=== PATIENT | male | born 1985 | race Caucasian/White ===

== ENCOUNTER 2022-05-20 14:28 | Inpatient (IN) ==
[2022-05-20] MEDS ORDERED: ONDANSETRON 2 MG OD TAB ONE (16:05)
[2022-05-20 16:14] LABS: Basophils # (auto) 0.05 K/uL (0-0.2); Basophils % (auto) 0.8 %; Eosinophils % (auto) 1.6 %; Hematocrit (blood only) 35.1 % (40.1-51.0); Hemoglobin 11.1 g/dl (14.0-18.0); Immature Granulocytes # (auto) 0.05 K/uL (0.00-0.02); Immature Granulocytes % (auto) 0.8 %; Lymphocytes # (auto) 1.46 K/uL (1.2-3.4); Lymphocytes % (auto) 23.1 %; Mean Corpuscular Hemoglobin 25.5 pg (25.0-34.0); Mean Corpuscular Hgb Conc 31.6 g/dL (32.0-36.0); Mean Corpuscular Volume 80.5 fL (80.0-100.0); Mean Platelet Volume 10.4 fL (9.4-12.4); Monocytes # (auto) 0.29 K/uL (0.24-0.82); Monocytes % (auto) 4.6 %; Neutrophils # (auto) 4.38 K/uL (1.4-6.5); Neutrophils % (auto) 69.1 %; Platelet Count 81 K/uL (130-400); Platelet Estimate Decreased (Normal); RDW Coefficient of Variation 18.3 % (11.5-14.5); RDW Standard Deviation 51.3 fL (36.4-46.3); Red Blood Count 4.36 M/uL (4.63-6.08); White Blood Count 6.33 K/ul (4.8-10.8)
[2022-05-20 16:16] LABS: Acetaminophen < 3 ug/ml (10-30); Alanine Aminotransferase 61 U/L (7-52); Albumin Level 3.7 gm/dl (3.4-5.0); Alkaline Phosphatase 102 U/L (34-104); Anion Gap 13 (3-11); Aspartate Aminotransferase 162 U/L (13-39); BUN Creatinine Ratio 8.7 (10-20); Bilirubin,Total 2.5 mg/dl (0.2-1.0); Blood Urea Nitrogen 6 mg/dl (6-23); Carbon Dioxide 23 mmol/L (21-32); Chloride 99 mmol/L (98-107); Est GFR (African American) 141.6 ml/min; Est GFR (Non-African American) 122.1 ml/min; Globulin 3.7 gm/dl (2.5-4.0); Glucose 181 mg/dl (70-99(Fasting)); Potassium 2.6 mmol/L (3.5-5.1); Salicylate < 3.0 mg/dl (3.0-30); Sodium 135 mmol/L (136-145); Total Protein 7.4 gm/dl (6.0-8.3)
--- NOTE | 2022-05-20 16:33 | Electrocardiogram Report ---
Test Reason : Blood Pressure : / mmHG Vent. Rate : 115 BPM Atrial Rate : 115 BPM P-R Int : 144 ms QRS Dur : 106 ms QT Int : 350 ms P-R-T Axes : 047 -11 067 degrees QTc Int : 484 ms Sinus tachycardia Minimal voltage criteria for LVH, may be normal variant Poor R wave progression, consider anterior NC vs. lead placement vs. LVH Abnormal ECG No previous ECGs available Confirmed by Hussein De La O ([id number]) on 05/20/2022 4:32:52 PM Referred By: Confirmed By:Hussein De La O
[2022-05-20] MEDS ORDERED: LORazepam 2 MG/1 ML VIAL IV STA ×3 (17:01→19:11)
[2022-05-20] MEDS ORDERED: MULTI-VITAMIN INFUSION 10 ML, THIAMINE HCL 100 MG, FOLIC ACID 1 MG in SODIUM CHLORIDE 0... IV ONE (17:01)
--- NOTE | 2022-05-20 17:09 | Emergency Department Note ---
History of Present Illness General Chief complaint: Swelling/Edema to Extremity Stated complaint: SWELLING, EDEMA, FATIGUE Time Seen by Provider: 05/20/22 16:46 Source: patient and family (Father is at the bedside) Mode of arrival: ambulatory Limitations: no limitations History of Present Illness Maximum Pain Intensity: 6 Patient comes in complaining of alcohol withdrawal and weakness. He feels he is going through alcohol withdrawal. He typically drinks 2 to 12 packs a day and stopped over the weekend he had some fireball this morning. He started to feel shaky. He is withdrawn in the past has been appear made in [facility]. He denies that he has had any suicidal intent or any overdose of medication such as aspirin or Tylenol. Does not use any other drugs denies any recent fall or trauma. He has an old hernia in his abdomen which is unchanged no acute abdominal pain he is vomited a couple times without blood. Diarrhea but no blood or melena. Home Medications Medication Instructions Recorded Confirmed Type albuterol sulfate 90 mcg/actuation 1 inh inhalation UD PRN asthma 09/20/21 05/20/22 History aerosol inhaler cetirizine 10 mg tablet (Zyrtec) 10 mg PO DAILY 09/20/21 05/20/22 History esomeprazole magnesium 40 mg 40 mg PO QAM 09/20/21 05/20/22 History capsule,delayed release (Nexium) lactulose 10 gram/15 mL oral 30 ml PO BID 09/20/21 05/20/22 History solution lorazepam 1 mg tablet 1 mg PO UD PRN Sleep 09/20/21 05/20/22 History melatonin 10 mg capsule 10 mg PO HS PRN Sleep 09/20/21 05/20/22 History Allergies Allergy/AdvReac Type Severity Reaction Status Date / Time No Known Allergies Allergy Verified 09/27/21 09:05 Past Med/Surg History Medical History Abnormal laboratory test pt not sure details - observed results on own ; been abnormal for last couple blood tests ...no f/u appointment scheduled for or recommended for Asthma no use rescule inhaler for long time Bilateral swelling of feet HX DIURETIC AUG 2021 - NO CURRENT USE - SWELLING RESOLVED GERD (gastroesophageal reflux disease) History of diverticulitis History of tachycardia remote hx, medication for and since d/c'd - resolved and no further issues since Seasonal allergies Sleep apnea can't tolerate device Surgical History History of cholecystectomy History of endoscopy Family History Other Family history of diabetes mellitus in father Social History Smoking Status: Never smoker Hx Alcohol Use: No ("NOT CURRENTLY") Preferred Language: French Communication Ability: Effective 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 Beliefs That Will Affect Care: None Current Living Situation: Significant Other Feels Safe at Home: Yes Assistive Devices: None Review of Systems A total of 10 systems reviewed and were otherwise negative Physical Exam Vital Signs Vital Signs - 24 hr 05/20/22 14:31 05/20/22 17:03 Temperature 36.9 C Temperature Source Temporal Artery Scan Pulse Rate 127 H Pulse Rate [Finger] 112 H Respiratory Rate 18 18 Respiratory Effort / Characteristics Non-Labored Non-Labored Respiratory Depth Normal Normal Blood Pressure 140/70 Blood Pressure [Right Arm] 139/79 Blood Pressure Mean 93 Blood Pressure Mean [Right Arm] 99 Pulse Oximetry 94 97 Oxygen Delivery Method Room Air Room Air Sepsis Recent Fever Within 48 Hours No Sepsis New/Unexplained Change in Mental Status No Sepsis Action Taken by Nursing No Action Required General: Well developed well nourished obese middle-aged male who appears in no acute distress, breathing comfortably on room air. Normal speech HEENT: Normal cephalic atraumatic. Pupils are equal round and reactive to light. Extraocular movements are intact. Oropharynx is pink with moist mucous membranes. No swelling of the mouth lips or tongue. Neck: Supple with a midline trachea. No meningeal signs or stiffness, no JVD or bruits. No Stridor. Chest: Clear to auscultation bilaterally. No wheezes or rhonchi. No increased work of breathing. Heart: Regular rate and rhythm without murmurs or gallops. Abdomen: Soft nontender, nondistended without rebound guarding or rigidity. Hernia on the left side of the abdomen is not tender. The patient says this is unchanged. Extremities: No cyanosis clubbing. Some bilateral lower extremity edema and some generalized anasarca. No calf tenderness or assymetry Spine/Back. Non tender to palpation. No CVA tenderness Skin: Good turgor without rashes. Neurologic exam: Cranial nerves two through 12 are intact. Motor and sensation are intact and symmetrical throughout. Overtly shaky. Course Administered Medications Acetaminophen (Acetaminophen 325 Mg Tab) 650 mg PO Q4H PRN PRN Reason: Pain or Fever Stop: 06/19/22 19:57 Last Admin: 05/20/22 20:54 Dose: 650 mg Documented By: VENKATESH Enoxaparin Sodium (Enoxaparin Inj 40 Mg/0.4 Ml Syr) 40 mg SQ Q12H WILLIAM Stop: 06/19/22 20:59 Last Admin: 05/20/22 20:27 Dose: 40 mg Documented By: VENKATESH Folic Acid (Folic Acid 1 Mg Tab) 1 mg PO QAM WILLIAM Stop: 06/19/22 20:14 Last Admin: 05/20/22 20:26 Dose: 1 mg Documented By: VENKATESH Lactulose (Lactulose Syrup 30 Gm/45 Ml Udp) 30 gm PO BID WILLIAM Stop: 06/19/22 20:59 Last Admin: 05/20/22 21:36 Dose: 30 gm Documented By: VENKATESH Lorazepam (Lorazepam 1 Mg Tab) 1 mg PO UD PRN; Protocol PRN Reason: EtOH Withdrawal AWSS Score 6,7 Stop: 06/19/22 19:57 Last Admin: 05/20/22 22:24 Dose: 1 mg Documented By: Admin: 05/20/22 20:54 Dose: 1 mg Documented By: VENKATESH Melatonin (Melatonin 3 Mg Tab) 9 mg PO HS PRN PRN Reason: Sleep Last Admin: 05/20/22 22:24 Dose: 9 mg Documented By: VENKATESH Ondansetron HCl (Ondansetron Inj 2 Mg/Ml 2 Ml Vial) 4 mg IV Q6H PRN PRN Reason: Nausea Stop: 06/19/22 19:57 Last Admin: 05/20/22 20:54 Dose: 4 mg Documented By: VENKATESH Pantoprazole Sodium (Pantoprazole 40 Mg Tab) 40 mg PO QAM [facility] Stop: 06/19/22 20:14 Last Admin: 05/20/22 20:27 Dose: 40 mg Documented By: VENKATESH Thiamine HCl (Thiamine Hcl 100 Mg Tab) [facility] [place] Stop: 06/19/22 20:14 Last Admin: 05/20/22 20:26 Dose: 100 mg Documented By: VENKATESH Discontinued Medications Multivitamins 10 ml/ Thiamine HCl 100 mg/ Folic Acid 1 mg/Sodium Chloride 1,011.2 mls @ 1,011.2 mls/hr IV .Q1H ONE Stop: 05/20/22 18:00 Last Infusion: 05/20/22 19:08 Dose: 0 mls/hr Documented By: Admin: 05/20/22 17:36 Dose: 1,011.2 mls/hr Documented By: JAYESH Potassium Chloride (K Dallin / Wtr) 10 meq in 100 mls @ 100 mls/hr IV Q1H WILLIAM; Protocol Stop: 05/20/22 19:14 Last Infusion: 05/20/22 20:00 Dose: 0 mls/hr Documented By: Admin: 05/20/22 18:31 Dose: 100 mls/hr Documented By: Infusion: 05/20/22 18:30 Dose: 100 mls/hr Documented By: Admin: 05/20/22 17:30 Dose: 100 mls/hr Documented By: JAYESH Magnesium Sulfate/Dextrose (Magnesium Sulfate / D5w) 1 gm in 100 mls @ 100 mls/hr IV NOW STA Stop: 05/20/22 19:09 Last Infusion: 05/20/22 19:32 Dose: 0 mls/hr Documented By: Admin: 05/20/22 18:31 Dose: 100 mls/hr Documented By: JAYESH Potassium Chloride (K Dallin / Wtr) 10 meq in 100 mls @ 100 mls/hr IV Q1H WILLIAM Stop: 05/20/22 21:57 Last Admin: 05/20/22 21:01 Dose: 75 mls/hr Documented By: Infusion: 05/20/22 21:01 Dose: 100 mls/hr Documented By: Admin: 05/20/22 20:03 Dose: 100 mls/hr Documented By: VENKATESH Lorazepam (Lorazepam 2 Mg/1 Ml Vial) 1 mg IV NOW STA; Protocol Stop: 05/20/22 17:02 Last Admin: 05/20/22 17:30 Dose: 1 mg Documented By: JAYESH Lorazepam (Lorazepam 2 Mg/1 Ml Vial) 1 mg IV NOW STA; Protocol Stop: 05/20/22 18:10 Last Admin: 05/20/22 19:24 Dose: Not Given Documented By: GRECIA Lorazepam (Lorazepam 2 Mg/1 Ml Vial) 1 mg IV NOW STA; Protocol Stop: 05/20/22 19:12 Last Admin: 05/20/22 19:24 Dose: 1 mg Documented By: GRECIA Ondansetron HCl (Ondansetron 2 Mg Od Tab) Confirm Administered Dose 2 mg .ROUTE .STK-MED ONE Stop: 05/20/22 16:06 Last Admin: 05/20/22 18:52 Dose: Not Given Documented By: GRECIA Ondansetron HCl (Ondansetron 4 Mg Od Tab) 4 mg PO NOW STA Stop: 05/20/22 19:14 Last Admin: 05/20/22 19:24 Dose: 4 mg Documented By: GRECIA Potassium Chloride (Potassium Chloride Crtab 20 Meq Tabcr) 40 meq PO NOW STA Stop: 05/20/22 19:59 Last Admin: 05/20/22 20:27 Dose: 40 meq Documented By: VENKATESH Medical Decision Making Differential Diagnosis Fall, electrolyte or metabolic abnormality, infection, cardiac disease, liver disease, toxicologic, metabolic Medical Records Attestation: I reviewed the patient's medical records. Home Medications Current Medication List: was personally reviewed by me Laboratory Data Result diagrams: 05/20/22 15:28 05/20/22 15:28 Lab Results 05/20/22 05/20/22 05/20/22 Range/Units 15:25 15:28 15:28 WBC 6.33 (4.8-10.8) K/ul RBC 4.36 L (4.63-6.08) M/uL Hgb 11.1 L (14.0-18.0) g/dl Hct 35.1 L (40.1-51.0) % MCV 80.5 (80.0-100.0) fL MCH 25.5 (25.0-34.0) pg MCHC 31.6 L (32.0-36.0) g/dL RDW Std Deviation 51.3 H (36.4-46.3) fL RDW Coeff of Enrrique 18.3 H (11.5-14.5) % Plt Count 81 L (130-400) K/uL MPV 10.4 (9.4-12.4) fL Immature Gran % (Auto) 0.8 % Neut % (Auto) 69.1 % Lymph % (Auto) 23.1 % Rowan % (Auto) 4.6 % Eos % (Auto) 1.6 % Baso % (Auto) 0.8 % Neut # (Auto) 4.38 (1.4-6.5) K/uL Lymph # (Auto) 1.46 (1.2-3.4) K/uL Rowan # (Auto) 0.29 (0.24-0.82) K/uL Eos # (Auto) 0.10 (0-0.50) K/uL Baso # (Auto) 0.05 (0-0.2) K/uL Immature Gran # (Auto) 0.05 H (0.00-0.02) K/uL Platelet Estimate Decreased L (Normal) PT 13.5 H (9.0-12.0) Seconds INR 1.3 H (0.9-1.1) APTT 28.8 (21.0-31.0) Seconds PTT Ratio 1.0 Sodium 135 L (136-145) mmol/L Potassium 2.6 L (3.5-5.1) mmol/L Chloride 99 (98-107) mmol/L Carbon Dioxide 23 (21-32) mmol/L Anion Gap 13 H (3-11) BUN 6 (6-23) mg/dl Creatinine 0.69 (0.6-1.4) mg/dl Est Cr Clr Drug Dosing Not Reportable Est GFR ( Amer) 141.6 ml/min Est GFR (Non-Af Amer) 122.1 ml/min BUN/Creatinine Ratio 8.7 L (10-20) Glucose 181 H (70-99(Fasting)) mg/dl Calcium 8.0 L (8.5-10.1) mg/dl Magnesium (1.7-2.4) mg/dl Total Bilirubin 2.5 H (0.2-1.0) mg/dl AST 162 H (13-39) U/L ALT 61 H (7-52) U/L Alkaline Phosphatase 102 (34-104) U/L Troponin I High Sens (0-20) pg/ml B-Natriuretic Peptide (0-100) pg/ml Total Protein 7.4 (6.0-8.3) gm/dl Albumin 3.7 (3.4-5.0) gm/dl Globulin 3.7 (2.5-4.0) gm/dl Albumin/Globulin Ratio 1.0 (0.9-2) TSH (0.300-4.500) uIu/ml Salicylates (3.0-30) mg/dl Acetaminophen (10-30) ug/ml Ethyl Alcohol mg/dL (<10.0) mg/dl SARS-CoV-2, RNA, NAAT (NEGATIVE) 05/20/22 05/20/22 05/20/22 Range/Units 15:28 15:28 15:28 WBC (4.8-10.8) K/ul RBC (4.63-6.08) M/uL Hgb (14.0-18.0) g/dl Hct (40.1-51.0) % MCV (80.0-100.0) fL MCH (25.0-34.0) pg MCHC (32.0-36.0) g/dL RDW Std Deviation (36.4-46.3) fL RDW Coeff of Enrrique (11.5-14.5) % Plt Count (130-400) K/uL MPV (9.4-12.4) fL Immature Gran % (Auto) % Neut % (Auto) % Lymph % (Auto) % Rowan % (Auto) % Eos % (Auto) % Baso % (Auto) % Neut # (Auto) (1.4-6.5) K/uL Lymph # (Auto) (1.2-3.4) K/uL Rowan # (Auto) (0.24-0.82) K/uL Eos # (Auto) (0-0.50) K/uL Baso # (Auto) (0-0.2) K/uL Immature Gran # (Auto) (0.00-0.02) K/uL Platelet Estimate (Normal) PT (9.0-12.0) Seconds INR (0.9-1.1) APTT (21.0-31.0) Seconds PTT Ratio Sodium (136-145) mmol/L Potassium (3.5-5.1) mmol/L Chloride (98-107) mmol/L Carbon Dioxide (21-32) mmol/L Anion Gap (3-11) BUN (6-23) mg/dl Creatinine (0.6-1.4) mg/dl Est Cr Clr Drug Dosing Est GFR ( Amer) ml/min Est GFR (Non-Af Amer) ml/min BUN/Creatinine Ratio (10-20) Glucose (70-99(Fasting)) mg/dl Calcium (8.5-10.1) mg/dl Magnesium (1.7-2.4) mg/dl Total Bilirubin (0.2-1.0) mg/dl AST (13-39) U/L ALT (7-52) U/L Alkaline Phosphatase (34-104) U/L Troponin I High Sens (0-20) pg/ml B-Natriuretic Peptide (0-100) pg/ml Total Protein (6.0-8.3) gm/dl Albumin (3.4-5.0) gm/dl Globulin (2.5-4.0) gm/dl Albumin/Globulin Ratio (0.9-2) TSH 2.276 (0.300-4.500) uIu/ml Salicylates < 3.0 L (3.0-30) mg/dl Acetaminophen < 3 L (10-30) ug/ml Ethyl Alcohol mg/dL 437.0 H (<10.0) mg/dl SARS-CoV-2, RNA, NAAT (NEGATIVE) 05/20/22 05/20/22 05/20/22 Range/Units 15:28 15:28 15:28 WBC (4.8-10.8) K/ul RBC (4.63-6.08) M/uL Hgb (14.0-18.0) g/dl Hct (40.1-51.0) % MCV (80.0-100.0) fL MCH (25.0-34.0) pg MCHC (32.0-36.0) g/dL RDW Std Deviation (36.4-46.3) fL RDW Coeff of Enrrique (11.5-14.5) % Plt Count (130-400) K/uL MPV (9.4-12.4) fL Immature Gran % (Auto) % Neut % (Auto) % Lymph % (Auto) % Rowan % (Auto) % Eos % (Auto) % Baso % (Auto) % Neut # (Auto) (1.4-6.5) K/uL Lymph # (Auto) (1.2-3.4) K/uL Rowan # (Auto) (0.24-0.82) K/uL Eos # (Auto) (0-0.50) K/uL Baso # (Auto) (0-0.2) K/uL Immature Gran # (Auto) (0.00-0.02) K/uL Platelet Estimate (Normal) PT (9.0-12.0) Seconds INR (0.9-1.1) APTT (21.0-31.0) Seconds PTT Ratio Sodium (136-145) mmol/L Potassium (3.5-5.1) mmol/L Chloride (98-107) mmol/L Carbon Dioxide (21-32) mmol/L Anion Gap (3-11) BUN (6-23) mg/dl Creatinine (0.6-1.4) mg/dl Est Cr Clr Drug Dosing Est GFR ( Amer) ml/min Est GFR (Non-Af Amer) ml/min BUN/Creatinine Ratio (10-20) Glucose (70-99(Fasting)) mg/dl Calcium (8.5-10.1) mg/dl Magnesium 1.7 (1.7-2.4) mg/dl Total Bilirubin (0.2-1.0) mg/dl AST (13-39) U/L ALT (7-52) U/L Alkaline Phosphatase (34-104) U/L Troponin I High Sens 133.4 H* (0-20) pg/ml B-Natriuretic Peptide 51 (0-100) pg/ml Total Protein (6.0-8.3) gm/dl Albumin (3.4-5.0) gm/dl Globulin (2.5-4.0) gm/dl Albumin/Globulin Ratio (0.9-2) TSH (0.300-4.500) uIu/ml Salicylates (3.0-30) mg/dl Acetaminophen (10-30) ug/ml Ethyl Alcohol mg/dL (<10.0) mg/dl SARS-CoV-2, RNA, NAAT (NEGATIVE) 05/20/22 Range/Units 17:12 WBC (4.8-10.8) K/ul RBC (4.63-6.08) M/uL Hgb (14.0-18.0) g/dl Hct (40.1-51.0) % MCV (80.0-100.0) fL MCH (25.0-34.0) pg MCHC (32.0-36.0) g/dL RDW Std Deviation (36.4-46.3) fL RDW Coeff of Enrrique (11.5-14.5) % Plt Count (130-400) K/uL MPV (9.4-12.4) fL Immature Gran % (Auto) % Neut % (Auto) % Lymph % (Auto) % Rowan % (Auto) % Eos % (Auto) % Baso % (Auto) % Neut # (Auto) (1.4-6.5) K/uL Lymph # (Auto) (1.2-3.4) K/uL Rowan # (Auto) (0.24-0.82) K/uL Eos # (Auto) (0-0.50) K/uL Baso # (Auto) (0-0.2) K/uL Immature Gran # (Auto) (0.00-0.02) K/uL Platelet Estimate (Normal) PT (9.0-12.0) Seconds INR (0.9-1.1) APTT (21.0-31.0) Seconds PTT Ratio Sodium (136-145) mmol/L Potassium (3.5-5.1) mmol/L Chloride (98-107) mmol/L Carbon Dioxide (21-32) mmol/L Anion Gap (3-11) BUN (6-23) mg/dl Creatinine (0.6-1.4) mg/dl Est Cr Clr Drug Dosing Est GFR ( Amer) ml/min Est GFR (Non-Af Amer) ml/min BUN/Creatinine Ratio (10-20) Glucose (70-99(Fasting)) mg/dl Calcium (8.5-10.1) mg/dl Magnesium (1.7-2.4) mg/dl Total Bilirubin (0.2-1.0) mg/dl AST (13-39) U/L ALT (7-52) U/L Alkaline Phosphatase (34-104) U/L Troponin I High Sens (0-20) pg/ml B-Natriuretic Peptide (0-100) pg/ml Total Protein (6.0-8.3) gm/dl Albumin (3.4-5.0) gm/dl Globulin (2.5-4.0) gm/dl Albumin/Globulin Ratio (0.9-2) TSH (0.300-4.500) uIu/ml Salicylates (3.0-30) mg/dl Acetaminophen (10-30) ug/ml Ethyl Alcohol mg/dL (<10.0) mg/dl SARS-CoV-2, RNA, NAAT NEGATIVE (NEGATIVE) Imaging Data Attestation: I personally reviewed and interpreted this imaging study as follows: My Impression: Chest x-raycardiomegaly but no definite pneumonia or pneumothorax or CHF Radiologist's Impression: Chest X-Ray 05/20/22 17:00 XR chest 1V portable CLINICAL HISTORY: fluids retnetion TECHNIQUE: Single frontal radiograph of the chest was obtained. Comparison: None available at the time of this dictation. FINDINGS: No lines and tubes are seen. Cardiomegaly is noted. Prominence and cephalization of the vasculature is seen. No evidence of pleural effusion or pneumothorax. IMPRESSION: Cardiomegaly with mild pulmonary edema. ACT 112: Negative or not required by law. Electronically signed by: Donte Gill M.D. 05/20/2022 6:12 PM ECG Data Attestation: I personally reviewed and interpreted this ECG as follows: Indication: + weakness Rate (beats per minute): 115 Rhythm: + sinus tachycardia ECG Intervals/blocks: + Normal QRS, + Normal QT and + Normal NC ECG Wilmont: + Normal ECG ST segments: + Normal ST segments ECG Findings: + Poor R wave progression; no PACs or no PVCs Comparison ECG Date: no prior available MDM Narrative This patient comes in as described above. 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 He has been drinking. he feels he is withdrawing. he does not appear to be significantly shaky. he is mildly tachycardic he did give Ativan 1 mg IV as his blood alcohol is over 400. He is mentating well however. His potassium low 2.6 I did order 2K riders. Magnesium is low. He was given IV magnesium as well. He did receive additional IV Ativan 1 mg. EKG does not show any definite ischemic changes however troponin was elevated at 133 1 but can talk to him he has had no chest pain or shortness of breath. I do think he needs to be admitted and observed for his electrolyte abnormalities his alcohol use and withdrawal as well as his elevated troponin I have consulted the hospitalist raquel negron to see him in the ER for these measures. Continous Cardiac monitoring: Order was placed in the EMR for continuous cardiac monitoring and upon my interpretation the patient was noted to be in sin us tachycardia with a rate of 115 Impression & Plan Alcohol withdrawal, Alcohol use disorder, Hypomagnesemia, Hypokalemia, Elevated troponin Discharge Plan Visit Data Chief Complaint: Swelling/Edema to Extremity Stated Complaint: SWELLING, EDEMA, FATIGUE ED Provider: Randall Grover Discharge Problem: Alcohol withdrawal, Alcohol use disorder, Hypomagnesemia, Hypokalemia, Elevated troponin Patient Disposition: Admitted As Inpatient Discharge Instructions Interventions: ED Discharge Assessment Last Done: 05/20/22 19:39
[2022-05-20] MEDS: POTASSIUM CHLORIDE / WTR 10 MEQ/100 ML PLCT IV SCH ×4 (17:30→21:01)
[2022-05-20 17:37] LABS: INR 1.3 (0.9-1.1); Partial Thromboplastin Time 28.8 Seconds (21.0-31.0); Prothrombin Time 13.5 Seconds (9.0-12.0)
[2022-05-20] MEDS ORDERED: MAGNESIUM SULFATE / D5W 1 GM/100 ML BAG IV STA (18:10)
--- NOTE | 2022-05-20 18:13 | XRay Report ---
XR chest 1V portable CLINICAL HISTORY: fluids retnetion TECHNIQUE: Single frontal radiograph of the chest was obtained. Comparison: None available at the time of this dictation. FINDINGS: No lines and tubes are seen. Cardiomegaly is noted. Prominence and cephalization of the vasculature i s seen. No evidence of pleural effusion or pneumothorax. IMPRESSION: Cardiomegaly with mild pulmonary edema. ACT 112: Negative or not required by law. Electronically signed by: Donte Gill M.D. 05/20/2022 6:12 PM
[2022-05-20] MEDS ORDERED: ONDANSETRON 4 MG OD TAB PO STA (19:13)
--- NOTE | 2022-05-20 19:25 | History & Physical Report ---
Date of Service May 20, 2022 Assessment & Plan (1) Alcohol withdrawal: Plan: 36 yo male PMHx alcohol use disorder, cirrhosis, asthma, restless leg syndrome, GERD presents to clinic for alcohol withdrawal. Alcohol withdrawal Alcohol use disorder -presented with mild tremors, last drink yesterday per patient -ethyl alcohol 437 -active AWSS protocol with spot doses of ativan for anxiety -banana bag x1 in ED -daily thiamine, folate -zofran, tylenol prn Elevated troponin -suspect due to demand ischemia secondary to alcohol use -trop 133, trend q6h -EKG: sinus tachycardia -CXR: cardiomegaly with pulm edema -echo ordered Hypokalemia -K 2.6 in ED -replenished, recheck am Cirrhosis, chronic -likely due to chronic alcohol use -PT, INR, LFTs elevated -cont. home lactulose -trend cmp GERD -cont. home nexium Asthma -cont home albuterol DVT ppx: lovenox FEN/GI: regular Code Status: full Dispo: med tele (2) Cirrhosis: (3) Asthma: (4) GERD (gastroesophageal reflux disease): (5) Alcohol use disorder: (6) Thrombocytopenia: (7) Anemia: History of Present Illness Chief Complaint: alcohol withdrawal Primary Care Provider: NO PCP 36 yo male PMHx alcohol use disorder, cirrhosis, asthma, restless leg syndrome, GERD presents to clinic for alcohol withdrawal. He drank 24 white claws a day for the last week and then had a shot of fireball last night. Denies alcohol use today. Starting to feel generalized tremors, difficulty sleeping, and chills. Denies fevers, SOB, chest pain, hallucinations. Long standing history of alcohol use disorder, states he was in the [facility] program ~2 months ago which was going well until it fell apart. He is interested in quitting alcohol once again. Denies any heart abnormalities. Was given banana bag and spot doses of Ativan in the ED. Allergies Allergy/AdvReac Type Severity Reaction Status Date / Time No Known Allergies Allergy Verified 09/27/21 09:05 Home Medications Medication Instructions Recorded Confirmed Type albuterol sulfate 90 mcg/actuation 1 inh inhalation UD PRN asthma 09/20/21 05/20/22 History aerosol inhaler cetirizine 10 mg tablet (Zyrtec) 10 mg PO DAILY 09/20/21 05/20/22 History esomeprazole magnesium 40 mg 40 mg PO QAM 09/20/21 05/20/22 History capsule,delayed release (Nexium) lactulose 10 gram/15 mL oral 30 ml PO BID 09/20/21 05/20/22 History solution lorazepam 1 mg tablet 1 mg PO UD PRN Sleep 09/20/21 05/20/22 History melatonin 10 mg capsule 10 mg PO HS PRN Sleep 09/20/21 05/20/22 History Past Med/Surg History Medical History Abnormal laboratory test pt not sure details - observed results on own ; been abnormal for last couple blood tests ...no f/u appointment scheduled for or recommended for Asthma no use rescule inhaler for long time Bilateral swelling of feet HX DIURETIC AUG 2021 - NO CURRENT USE - SWELLING RESOLVED GERD (gastroesophageal reflux disease) History of diverticulitis History of tachycardia remote hx, medication for and since d/c'd - resolved and no further issues since Seasonal allergies Sleep apnea can't tolerate device Surgical History History of cholecystectomy History of endoscopy Family History Other Family history of diabetes mellitus in father Social History Smoking Status: Never smoker Hx Alcohol Use: No ("NOT CURRENTLY") Preferred Language: Venezuelan Communication Ability: Effective [employer] Mixer Required: No Beliefs That Will Affect Care: None Current Living Situation: Significant Other Feels Safe at Home: Yes Assistive Devices: None Review of Systems Review of Systems: All systems reviewed & are unremarkable except as noted in HPI & below Physical Exam Physical Exam: Constitutional: in no acute distress, pleasant, intact memory. Vitals as above. Morbidly obese. HEENT: No scleral injection or discharge. Moist mucous membranes. Clear oropharynx without exudate. Neck: Supple without lymphadenopathy or thyromegaly. Trachea midline. Lungs: Clear to auscultation bilaterally with good effort. Cardiac: Regular rate and rhythm. No murmurs.2+ bilateral pitting edema. 2+ peripheral pulses. Abdomen: Bowel sounds present. Soft, nontender. +large hiatal hernia.No guarding or rebound tenderness. No hepatosplenomegaly. MSK: No cyanosis or clubbing. Extremities motor strength 5/5. Skin: warm, dry. Neurologic: No focal deficits. PERRL. +generalized tremors. No clonus. Results & Data Results & Data ([facility]) Vital Signs (Past 12 Hours) Vital Signs Temp Pulse Pulse Resp BP BP Pulse Ox 05/20/22 17:03 112 H 18 139/79 97 05/20/22 14:31 36.9 C 127 H 18 140/70 94 O2 Del Method 05/20/22 17:03 Room Air 05/20/22 14:31 Room Air Laboratory Results Laboratory Results WBC 6.33 K/ul (4.8-10.8) 05/20/22 15: RBC 4.36 M/uL (4.63-6.08) L 05/20/22 15: Hgb 11.1 g/dl (14.0-18.0) L 05/20/22 15: Hct 35.1 % (40.1-51.0) L 05/20/22 15:28 MCV 80.5 fL (80.0-100.0) 05/20/22 15: MCH 25.5 pg (25.0-34.0) 05/20/22 15: MCHC 31.6 g/dL (32.0-36.0) L 05/20/22 15:28 RDW Std Deviation 51.3 fL (36.4-46.3) H 05/20/22 15: RDW Coeff of Enrrique 18.3 % (11.5-14.5) H 05/20/22 15:28 Plt Count 81 K/uL (130-400) L 05/20/22 15: MPV 10.4 fL (9.4-12.4) 05/20/22 15: Immature Gran % (Auto) 0.8 % 05/20/22 15: Neut % (Auto) 69.1 % 05/20/22 15: Lymph % (Auto) 23.1 % 05/20/22 15:28 Parker % (Auto) 4.6 % 05/20/22 15: Eos % (Auto) 1.6 % 05/20/22 15: Baso % (Auto) 0.8 % 05/20/22 15: Neut # (Auto) 4.38 K/uL (1.4-6.5) 05/20/22: Lymph # (Auto) 1.46 K/uL (1.2-3.4) 05/20/22 15: Parker # (Auto) 0.29 K/uL (0.24-0.82) 05/20/22: Eos # (Auto) 0.10 K/uL (0-0.50) 05/20/22 15: Baso # (Auto) 0.05 K/uL (0-0.2) 05/20/22: Immature Gran # (Auto) 0.05 K/uL (0.00-0.02) H 05/20/22 15: Platelet Estimate Decreased (Normal) L 05/20/22 15: PT 13.5 Seconds (9.0-12.0) H 05/20/22 15: INR 1.3 (0.9-1.1) H 05/20/22 15: APTT 28.8 Seconds (21.0-31.0) 05/20/22: PTT Ratio 1.0 05/20/22 15: Sodium 135 mmol/L (136-145) L 05/20/22: Potassium 2.6 mmol/L (3.5-5.1) L 05/20/22: Chloride 99 mmol/L (98-107) 05/20/22: Carbon Dioxide 23 mmol/L (21-32) 05/20/22: Anion Gap 13 (3-11) H 05/20/22 15: BUN 6 mg/dl (6-23) 05/20/22: Creatinine 0.69 mg/dl (0.6-1.4) 05/20/22: Est Cr Clr Drug Dosing Not Reportable 05/20/22: Est GFR ( Amer) 141.6 ml/min 05/20/22 15: Est GFR (Non-Af Amer) 122.1 ml/min 05/20/22: BUN/Creatinine Ratio 8.7 (10-20) L 05/20/22 15:28 Glucose 181 mg/dl (70-99(Fasting)) H 05/20/22 15:28 Calcium 8.0 mg/dl (8.5-10.1) L 05/20/22 15:28 Magnesium 1.7 mg/dl (1.7-2.4) 05/20/22 15:28 Total Bilirubin 2.5 mg/dl (0.2-1.0) H 05/20/22 15:28 AST 162 U/L (13-39) H 05/20/22 15:28 ALT 61 U/L (7-52) H 05/20/22 15:28 Alkaline Phosphatase 102 U/L (34-104) 05/20/22 15:28 Troponin I High Sens 133.4 pg/ml (0-20) H* 05/20/22 15:28 B-Natriuretic Peptide 51 pg/ml (0-100) 05/20/22 15:28 Total Protein 7.4 gm/dl (6.0-8.3) 05/20/22 15:28 Albumin 3.7 gm/dl (3.4-5.0) 05/20/22 15:28 Globulin 3.7 gm/dl (2.5-4.0) 05/20/22 15:28 Albumin/Globulin Ratio 1.0 (0.9-2) 05/20/22 15: TSH 2.276 uIu/ml (0.300-4.500) 05/20/22 15:28 Salicylates < 3.0 mg/dl (3.0-30) L 05/20/22 15:28 Acetaminophen < 3 ug/ml (10-30) L 05/20/22 15:28 Ethyl Alcohol mg/dL 437.0 mg/dl (<10.0) H 05/20/22 15:28 SARS-CoV-2, RNA, NAAT NEGATIVE (NEGATIVE) 05/20/22 17:12 Impressions Chest X-Ray 05/20/22 17:00 XR chest 1V portable CLINICAL HISTORY: fluids retnetion TECHNIQUE: Single frontal radiograph of the chest was obtained. Comparison: None available at the time of this dictation. FINDINGS: No lines and tubes are seen. Cardiomegaly is noted. Prominence and cephalization of the vasculature is seen. No evidence of pleural effusion or pneumothorax. IMPRESSION: Cardiomegaly with mild pulmonary edema. ACT 112: Negative or not required by law. Electronically signed by: Donte Gill M.D. 05/20/2022 6:12 PM Code Status & VTE Plan VTE Prophylaxis Plan VTE Prophylaxis will be ordered: Yes Supervising Physician Co-Signing Physician Notes Patient seen and examined, chart reviewed, case discussed with Santosh Baez PGY-2 and I agree with the assessment and plan as above except as otherwise noted. 36-year-old male past medical history significant for alcohol use disorder, asthma, GERD, cirrhosis admitted to hospital for acute alcohol withdrawal. Labs and imaging reviewed: Notable for normocytic anemia with hemoglobin of 11.1, thrombocytopenia with platelets of 81, INR 1.3, potassium 2.6, elevated AST/ALT/Tbili. High- sensitivity troponin 133.4 with no prior levels to compare. BNP 51. Alcohol level 437. Chest x-ray with evidence of cardiomegaly and mild pulmonary edema. Exam: Patient is well-developed, morbidly obese, in mild distress due to feeling anxious. Noted to have resting tremor in bilateral upper extremities, and to be sweating. Patient is tachycardic to the 110s with regular rhythm, no murmurs. No other vital sign abnormalities. Poor air movement on lung exam, no crackles. Abdominal exam notable for large hernia, abdomen soft nontender. 3+ pitting edema bilateral lower extremities up to mid catherine. No sensory or motor deficits noted. Plan: Alcohol withdrawal, Alcohol use disorder: AWSS active protocol initiated. Thiamine and folate supplements added. Case Management to review rehab options with patient. Elevated troponin, cardiomegaly, pulmonary edema: Unclear etiology, perhaps component of demand due to persistent tachycardia however would not be expected in patient's age. No evidence of NH on EKG. Cardiomegaly and pulmonary edema could suggest underlying cardiomyopathy or other cardiac etiology. Echo ordered. Monitor intake and output. No oxygen demand; consider diuretics if patient's pulmonary status changes. Low sodium diet. Hypokalemia: 2.8 on admission. Will receive total of 40mg PO, 40mg IV with repeat level in AM. Cirrhosis: History of, follows with Gastroenterology. No evidence of encephalopathy. Continue home lactulose BID. Thrombocytopenia: suspected to be secondary to cirrhosis. Repeat in AM with peripheral smear. Anemia: Unclear etiology. No evidence of active bleeding. Repeat in AM. Resident Activity Tracking Resident Involvement: Resident Care Provided Care Provided: Adult Hospital Medicine
[2022-05-20] MEDS ORDERED: POTASSIUM CHLORIDE CRTAB 20 MEQ TABCR PO STA (19:58)
[2022-05-20] MEDS ORDERED: LORazepam 1 MG TAB PO PRN ×2 (19:58)
[2022-05-20] MEDS ORDERED: ALBUTEROL HFA 8 GM INHALER INH PRN (19:58)
[2022-05-20] MEDS ORDERED: NITROGLYCERIN SL 0.4 MG/TAB TAB SL PRN (19:58)
[2022-05-20] MEDS ORDERED: Ativan PO Alcohol Withdrawal--Active Protocol PO PRN (19:58)
--- NOTE | 2022-05-20 20:13 | Billing Data ---
Date of Service May 20, 2022 Coding Level of Care Code 20093 Initial Inpt Care Lvl 3
[2022-05-20] MEDS: FOLIC ACID 1 MG TAB PO SCH (20:26)
[2022-05-20] MEDS: THIAMINE HCL 100 MG TAB PO SCH (20:26)
[2022-05-20] MEDS: PANTOprazole 40 MG TAB PO SCH (20:27)
[2022-05-20] MEDS: ENOXAPARIN INJ 40 MG/0.4 ML SYR SQ SCH (20:27)
[2022-05-20] MEDS: LORazepam 1 MG TAB PO PRN ×2 (20:54→22:24)
[2022-05-20] MEDS: ACETAMINOPHEN 325 MG TAB PO PRN (20:54)
[2022-05-20] MEDS: ONDANSETRON INJ 2 MG/ML 2 ML VIAL IV PRN (20:54)
[2022-05-20] MEDS ORDERED: LACTULOSE SYRUP 30 GM/45 ML UDP PO SCH (21:00)
[2022-05-20] MEDS: LACTULOSE SYRUP 30 GM/45 ML UDP PO SCH (21:36)
[2022-05-20] MEDS: MELATONIN 3 MG TAB PO PRN (22:24)
[2022-05-21] MEDS: ACETAMINOPHEN 325 MG TAB PO PRN ×2 (00:55→22:10)
[2022-05-21] MEDS: LORazepam 1 MG TAB PO PRN ×2 (00:55→07:50)
[2022-05-21] MEDS: ONDANSETRON INJ 2 MG/ML 2 ML VIAL IV PRN ×3 (00:56→21:46)
[2022-05-21 03:17] LABS: Basophils # (auto) 0.01 K/uL (0-0.2); Basophils % (auto) 0.2 %; Eosinophils # (auto) 0.04 K/uL (0-0.50); Hematocrit (blood only) 30.8 % (40.1-51.0); Hemoglobin 9.7 g/dl (14.0-18.0); Immature Granulocytes # (auto) 0.02 K/uL (0.00-0.02); Immature Granulocytes % (auto) 0.5 %; Lymphocytes # (auto) 0.39 K/uL (1.2-3.4); Lymphocytes % (auto) 9.4 %; Mean Platelet Volume 9.9 fL (9.4-12.4); Monocytes # (auto) 0.13 K/uL (0.24-0.82); Monocytes % (auto) 3.1 %; Neutrophils # (auto) 3.57 K/uL (1.4-6.5); Neutrophils % (auto) 85.8 %; Platelet Count 42 K/uL (130-400); White Blood Count 4.16 K/ul (4.8-10.8)
[2022-05-21 03:41] LABS: Basophilic Stippling 1+; Mean Corpuscular Hemoglobin 25.4 pg (25.0-34.0); Mean Corpuscular Hgb Conc 31.5 g/dL (32.0-36.0); Mean Corpuscular Volume 80.6 fL (80.0-100.0); Polychromasia 1+; RDW Coefficient of Variation 18.1 % (11.5-14.5); RDW Standard Deviation 50.9 fL (36.4-46.3); Red Blood Count 3.82 M/uL (4.63-6.08)
[2022-05-21 03:58] LABS: INR 1.4 (0.9-1.1); Prothrombin Time 14.6 Seconds (9.0-12.0)
[2022-05-21 04:39] LABS: Alanine Aminotransferase 53 U/L (7-52); Albumin Globulin Ratio 1.1 (0.9-2); Albumin Level 3.3 gm/dl (3.4-5.0); Alkaline Phosphatase 86 U/L (34-104); Anion Gap 7 (3-11); Aspartate Aminotransferase 146 U/L (13-39); BUN Creatinine Ratio 6.9 (10-20); Bilirubin,Total 2.1 mg/dl (0.2-1.0); Blood Urea Nitrogen 4 mg/dl (6-23); Calcium 7.6 mg/dl (8.5-10.1); Carbon Dioxide 25 mmol/L (21-32); Chloride 102 mmol/L (98-107); Creatinine Clr Calc Pharmacy 302.3 ml/min; Est GFR (African American) > 150.0 ml/min; Est GFR (Non-African American) 131.2 ml/min; Glucose 205 mg/dl (70-99(Fasting)); Potassium 3.3 mmol/L (3.5-5.1); Sodium 134 mmol/L (136-145); Total Protein 6.3 gm/dl (6.0-8.3); Troponin I High Sensitivity 117.3 pg/ml (0-20)
--- NOTE | 2022-05-21 07:15 | Progress Note ---
Date of Service May 21, 2022 Assessment & Plan (1) Alcohol withdrawal: Plan: 36 yo male PMHx alcohol use disorder, cirrhosis, asthma, restless leg syndrome, GERD presents to clinic for alcohol withdrawal. Alcohol withdrawal Alcohol use disorder -presented with mild tremors, last drink yesterday per patient -ethyl alcohol 437 -active AWSS protocol with spot doses of ativan for anxiety -banana bag x1 in ED -daily thiamine, folate -zofran, tylenol prn Elevated troponin -suspect due to demand ischemia secondary to alcohol use -trop 133, trend q6h -EKG: sinus tachycardia -CXR: cardiomegaly with pulm edema -echo ordered Hypokalemia -K 2.6 in ED -replenished, recheck am Cirrhosis, chronic -likely due to chronic alcohol use -PT, INR, LFTs elevated -cont. home lactulose -trend cmp GERD -cont. home nexium Asthma -cont home albuterol DVT ppx: lovenox FEN/GI: regular Code Status: full Dispo: med tele Complication of substance-induced condition: uncomplicated Qualified Code(s): F10.930 - Alcohol use, unspecified with withdrawal, uncomplicated (2) Cirrhosis: (3) Asthma: (4) GERD (gastroesophageal reflux disease): (5) Alcohol use disorder: (6) Thrombocytopenia: (7) Anemia: Admission and Anticipated Discharge Date Admission Date: May 20, 2022 Results & Data ([facility]) Vital Signs (Past 12 Hours) Vital Signs Temp Pulse Pulse Resp BP Pulse Ox O2 Del Method 05/21/22 02:44 36.8 C 124 H 22 165/73 H 94 Nasal Cannula 05/20/22 22:20 117 H 05/20/22 22:38 36.9 C 118 H 20 134/71 98 Nasal Cannula 05/20/22 20:30 Room Air, Nasal Cannula 05/20/22 20:01 120 H 05/20/22 20:09 36.4 C L 117 H 16 127/62 94 Room Air O2 Flow Rate 05/21/22 02:44 2 05/20/22 22:20 05/20/22 22:38 2 05/20/22 20:30 2 05/20/22 20:01 05/20/22 20:09 PG Care Time/CCT Total # of Minutes Spent Total Time Spent with Patient: Total time spent is greater than 50% in coordination of care (as documented) at patient's floor/unit and/or counseling patient: Coding Diagnoses Alcohol withdrawal F10.930 Complication of substance-induced condition: uncomplicated Cirrhosis K74.60 Asthma J45.909 GERD (gastroesophageal reflux disease) K21.9 Alcohol use disorder Thrombocytopenia D69.6 Anemia D64.9
[2022-05-21] MEDS: FOLIC ACID 1 MG TAB PO SCH (07:54)
[2022-05-21] MEDS: PANTOprazole 40 MG TAB PO SCH (07:54)
[2022-05-21] MEDS: CETIRIZINE HCL 10 MG TABLET PO SCH (07:55)
[2022-05-21] MEDS: POTASSIUM CHLORIDE CRTAB 20 MEQ TABCR PO SCH ×2 (07:55→21:46)
[2022-05-21] MEDS: ENOXAPARIN INJ 40 MG/0.4 ML SYR SQ SCH (07:55)
[2022-05-21] MEDS: THIAMINE HCL 100 MG TAB PO SCH (07:55)
[2022-05-21] MEDS: LACTULOSE SYRUP 30 GM/45 ML UDP PO SCH ×2 (07:56→21:47)
[2022-05-21 08:19] LABS: Basophils # (auto) 0.03 K/uL (0-0.2); Basophils % (auto) 0.7 %; Eosinophils # (auto) 0.14 K/uL (0-0.50); Eosinophils % (auto) 3.2 %; Hematocrit (blood only) 32.2 % (40.1-51.0); Hemoglobin 10.2 g/dl (14.0-18.0); Immature Granulocytes # (auto) 0.03 K/uL (0.00-0.02); Immature Granulocytes % (auto) 0.7 %; Lymphocytes # (auto) 0.86 K/uL (1.2-3.4); Lymphocytes % (auto) 19.5 %; Mean Platelet Volume 11.1 fL (9.4-12.4); Monocytes # (auto) 0.23 K/uL (0.24-0.82); Monocytes % (auto) 5.2 %; Neutrophils # (auto) 3.11 K/uL (1.4-6.5); Neutrophils % (auto) 70.7 %; Platelet Count 51 K/uL (130-400); Reticulocyte % 2.5 % (0.5-2.0)
[2022-05-21 08:41] LABS: Mean Corpuscular Hemoglobin 25.6 pg (25.0-34.0); Mean Corpuscular Hgb Conc 31.7 g/dL (32.0-36.0); Mean Corpuscular Volume 80.9 fL (80.0-100.0); Polychromasia 1+; RDW Coefficient of Variation 18.3 % (11.5-14.5); RDW Standard Deviation 51.7 fL (36.4-46.3); Red Blood Count 3.98 M/uL (4.63-6.08); Schistocytes 1+
[2022-05-21 08:44] LABS: Estimated Average Glucose 143 mg/dl; Hemoglobin A1C 6.6 % (4.5-5.6)
[2022-05-21 09:16] LABS: Folate (Folic Acid) 7.73 ng/ml (>5.38)
[2022-05-21] MEDS: PROMETHAZINE HCL 25 MG/20 ML UDP PO PRN (11:55)
--- NOTE | 2022-05-21 12:09 | XCELERA ---
[id number]
--- NOTE | 2022-05-21 18:02 | Hospitalist Progress Note ---
Date of Service May 21, 2022 Assessment & Plan (1) Alcohol withdrawal: Plan: 36 yo male PMHx alcohol use disorder, cirrhosis, mild intermittent asthma, GERD presented for alcohol withdrawal and intention to quit drinking. He was noted on admission to have thrombocytopenia and anemia, elevated coags, elevated BSG, and elevated troponin. Alcohol use disorder, alcohol withdrawal: -Presented with mild tremors, last drink 05/19 per patient however with admission alcohol level of 437. -Continue AWSS active protocol. Vitals signs still with mild tachycardia but improving from yesterday. -Daily thiamine, folate supplementation. -Zofran, Phenergan prn. -Patient has intention to quit drinking. Reports no alcohol left in house. Wants outpatient rehab and counseling resources. (2) Alcohol use disorder: Plan: -History of alcohol use for over a decade. -Reports typical use as about 20 white claws daily. -Has had some success with inpatient/outpatient rehab in the past. -Discussion had with patient about concerned regarding current and possible future negative health consequences of continued alcohol use. (3) Cirrhosis: Plan: -Possibly multifactorial; patient with history of cirrhosis on chart with self- reported history of fatty liver disease. -INR, retic count, and LDH elevated, elevated LFTs, low plts suggesting hem atologic sequelae of cirrhosis. -Continue home lactulose. -Daily CMP, CBC, coags. (4) Anemia: Plan: -On admission with Hgb 11.1 without baseline to compare, normocytic MCV. -Patient self reports being told "my blood count was low", but is not on any specific medications for this. -B12 and folate levels normal. Iron studies ordered with AM labs. -Suspect this is at least in part secondary to cirrhosis. -Daily CBC while admitted. Transfuse of Hgb <7. (5) Thrombocytopenia: Plan: -Admission plts 81, down to 51 today. -D/c dvt chemoppx given low plts. -Likely due to cirrhosis. -No evidence of bleeding at this time. Continue to monitor. (6) DM2 (diabetes mellitus, type 2): Plan: -New diagnosis in-hospital. -Presented with BSG high 100s during admission. -A1c this AM 6.6% consistent with new diagnosis of DM2. -DM2 diet. qACHS insulin with titration/addition of basal insulin based on insulin need. -Diabetes education ongoing while admitted. (7) Elevated troponin: Plan: -ER initial labwork with troponin 130s, repeat similar thought downtrending to 110s. -EKG NSR without ST/T wave changes or LBBB. -No complaints of chest pain. -Echo without wall motion abnormalities or cardiomyopathy. -Suspect demand ischemia given ongiong tachycardia in setting of alcohol withdrawal. -Continue tele for now. (8) Hypokalemia: Plan: -Admission K of 2.6; increased to 3.3 this AM after KCl 40mg IV and 40mg PO yesterday evening. -Continue KCl 40mg PO BID and adjust as necessary based on daily BMP. (9) Asthma: Plan: -Albuterol inh prn. (10) GERD (gastroesophageal reflux disease): Plan: -Continue PPI. Plan Code Status: Full Code DVT ppx: chemoprophylaxis contraindicated in plts <50, will hold. FEN/GI: DM2 Dispo: Med/Tele Admission and Anticipated Discharge Date Admission Date: May 20, 2022 Subjective Patient with episodes of nausea and anxiety overnight requiring Ativan per AWSS protocol. Otherwise no symptoms overnight. Review of Systems Constitutional: no fever, no chills and no malaise Respiratory: no cough and no dyspnea Cardiovascular: no chest pain, no palpitations and no edema Gastrointestinal: no abdominal pain, no constipation and no diarrhea/loose stools Genitourinary: no dysuria or no hematuria Hematologic / Lymphatic: no easy bleeding and no easy bruising reports history of external hemorrhoids with intermittent bright red blood per rectum, though not recently Physical Exam Constitutional: well developed and + morbidly obese; no acute distress Eyes: PERRL, conjunctivae normal, anicteric sclerae Respiratory: normal respiratory effort, lungs clear to auscultation Cardiovascular: Rate/Rhythm: regular rate and regular rhythm Heart Sounds: no murmur Extremities: + edema (3 + pitting bilateral LE to mid catherine) Gastrointestinal (Abdomen): normal bowel sounds, soft, nontender, no hepatosplenomegaly large ventral hernia noted Skin: no rashes, warm and dry Neurologic: AAOx3, normal speech. Mild resting tremor. Psychiatric: A+Ox3, euthymic affect Results & Data Results & Data ([facility]) Vital Signs (Past 12 Hours) Vital Signs Temp Pulse Pulse Resp BP Pulse Ox O2 Del Method 05/21/22 16:15 36.7 C 97 H 20 129/75 96 Nasal Cannula 05/21/22 15:49 102 H 05/21/22 11:58 36.5 C 107 H 18 137/86 94 Room Air 05/21/22 11:09 112 H 05/21/22 10:39 36.3 C L 106 H 20 134/71 90 Nasal Cannula 05/21/22 07:34 36.6 C 126 H 20 133/63 92 Nasal Cannula O2 Flow Rate 05/21/22 16:15 05/21/22 15:49 05/21/22 11:58 05/21/22 11:09 05/21/22 10:39 05/21/22 07:34 3 PG Care Time/CCT Total # of Minutes Spent Total Time Spent with Patient: Total time spent is greater than 50% in coordination of care (as documented) at patient's floor/unit and/or counseling patient: Coding Level of Care Code 62487 Subseq Hosp Care Lvl 3 Diagnoses Alcohol withdrawal F10.930 Complication of substance-induced condition: uncomplicated Alcohol use disorder Cirrhosis K74.60 Anemia D64.9 Thrombocytopenia D69.6 DM2 (diabetes mellitus, type 2) E11.9 Elevated troponin R77.8 Hypokalemia E87.6 Asthma J45.909 GERD (gastroesophageal reflux disease) K21.9 (1) Alcohol withdrawal Complication of substance-induced condition: uncomplicated Qualified Code(s): F10.930 - Alcohol use, unspecified with withdrawal, uncomplicated
[2022-05-21] MEDS ORDERED: GLUCOSE 10 TAB/TUBE PO PRN (18:49)
[2022-05-21] MEDS ORDERED: GLUCOSE 40% GEL 15 GM TUBE PO PRN (18:49)
[2022-05-21] MEDS ORDERED: DEXTROSE 50% 50 ML SYRINGE IV PRN (18:49)
[2022-05-21] MEDS ORDERED: CARBOHYDRATES FOR HYPOGLYCEMIA PO PRN (18:49)
[2022-05-21] MEDS ORDERED: GLUCAGON FOR INJ 1 MG VIAL SQ PRN (18:49)
[2022-05-21] MEDS: INSULIN ASPART PER UNIT SC SCH (21:53)
[2022-05-22 03:54] LABS: Appearance Urine Clear (Clear); Bilirubin Urine Negative (Negative); Blood Urine Negative (Negative); Color Urine Dark Yellow; Glucose Urine UA Negative (Negative); Ketones Urine Negative (Negative); Leukocyte Esterase Urine Negative (Negative); Nitrite Urine Negative (Negative); Protein Urine Negative (Negative); Urobilinogen Urine Negative (Negative)
[2022-05-22 04:35] LABS: Amphetamines+Metham, Urine Neg (Neg); Barbiturates, Urine Neg (Neg); Benzodiazepine, Urine Pos (Neg); Cocaine, Urine Neg (Neg); MDMA (Ecstacy), Urine Neg (Neg); Methadone, Urine Neg (Neg); Opiate, Urine Neg (Neg); Phencyclidine, Urine Neg (Neg)
[2022-05-22 06:52] LABS: INR 1.4 (0.9-1.1); Prothrombin Time 14.8 Seconds (9.0-12.0)
--- NOTE | 2022-05-22 07:00 | Hospitalist Progress Note ---
Date of Service May 22, 2022 Assessment & Plan (1) Alcohol withdrawal: Plan: 36 yo male PMHx alcohol use disorder, cirrhosis, mild intermittent asthma, GERD presented for alcohol withdrawal and intention to quit drinking. He was noted on admission to have thrombocytopenia and anemia, elevated coags, elevated BSG, and elevated troponin. Alcohol use disorder, alcohol withdrawal: -Presented with mild tremors, last drink 05/19 per patient however with admission alcohol level of 437. -Continue [facility] active protocol. Vitals signs still with mild tachycardia but continues to improve from admission. -Daily thiamine and folate supplementation. -Zofran, Phenergan prn. -Patient has intention to quit drinking. Reports no alcohol left in house. Wants outpatient rehab and counseling resources. (2) Alcohol use disorder: Plan: -History of alcohol use for over a decade. -Reports typical use as about 20 white claws daily. -Has had some success with inpatient/outpatient rehab in the past. -Discussion had with patient about concerned regarding current and possible future negative health consequences of continued alcohol use. (3) Cirrhosis: Plan: -Possibly multifactorial; patient with history of cirrhosis on chart (likely related to alcohol use) with self-reported history of fatty liver disease. -INR, reticulocyte count, and LDH elevated, elevated LFTs, low plts suggesting hematologic sequelae of cirrhosis. -Continue home lactulose. -CT Abdomen shows severe hepatic steatosis with cirrhosis, varices formation and moderate splenomegaly. No evidence of ascites. -Daily CMP, CBC, coags. -Follow up GI outpatient. (4) Hemoptysis: Plan: - New complaint by patient in the setting of thrombocytopenia and anemia. - Unclear cause, however could be in part due to low plts. - CT Chest without evidence of pneumonia, malignancy. (5) Anemia: Plan: - On admission with Hgb 11.1 without baseline to compare; normocytic MCV. - Hgb today 9.9 with patient reports of intermittent scant hemoptysis. No other bleeding per patient. - Patient self reports being told "my blood count was low", but is not on any specific medications for this. - B12 and folate levels normal. Iron studies with normal ferritin. - Suspect this is at least in part secondary to cirrhosis. - Daily CBC while admitted. Transfuse of Hgb <7. (6) Thrombocytopenia: Plan: - Admission plts 81, down to 36 today. - DVT chemoppx contraindicated given low plts. - GI provider contacted to determine platelet baseline. Suspect this drop is bone marrow suppression due to alcohol use and cirrhosis. - Hematology consulted given continued worsening of plt count with markers nonspecific for cirrhosis vs. DIC. Patient does not clinically appear to be in DIC. - Continue to monitor. (7) Pancytopenia: Plan: see above (8) DM2 (diabetes mellitus, type 2): Plan: - New diagnosis in-hospital. - Presented with BSG high 100s during admission. - A1c this AM 6.6% consistent with new diagnosis of DM2. - DM2 diet. qACHS insulin with titration/addition of basal insulin based on insulin need. - Diabetes education ongoing while admitted. - Transition to metformin on discharge with PCP follow up. (9) Elevated troponin: Plan: - ER initial labwork with troponin 130s, repeat similar thought downtrending to 110s. - EKG NSR without ST/T wave changes or LBBB. - No complaints of chest pain. - Echo without wall motion abnormalities or cardiomyopathy. - Suspect demand ischemia given ongoing tachycardia in setting of alcohol withdrawal. - Continue Tele. (10) Hypokalemia: Plan: - Admission K of 2.6; increased to 3.5 with oral and IV supplementation. - Continue KCl 40mg PO BID and adjust as necessary based on daily BMP. (11) Asthma: Plan: - Albuterol inh prn. (12) GERD (gastroesophageal reflux disease): Plan: - Continue PPI. Plan Code Status: Full Code DVT ppx: chemoprophylaxis contraindicated in plts <50, will hold. FEN/GI: DM2 Dispo: Med/Tele Admission and Anticipated Discharge Date Admission Date: May 20, 2022 Subjective Patient requiring less Ativan overnight, feeling less sweaty and anxious. Today did endorse occasional hemoptysis, does not remember when it started. Denies new abdominal pain; has some dull mild pain all the time around site of large abdominal hernia. Reports he has been told he has cirrhosis before by GI, and also reports he has been told in the past that his platelets and blood counts are low, though he is unsure how low. He denies chest pain or SOB, and has not required supplemental oxygen overnight. Review of Systems Constitutional: no fever, no chills and no malaise Respiratory: + cough (intermittent) and + hemoptysis (scant, not visualized by provider); no dyspnea Cardiovascular: + edema (chronic LE bilateral); no chest pain and no palpitations Gastrointestinal: no abdominal pain, no constipation and no diarrhea/loose stools Genitourinary: no dysuria or no hematuria Hematologic / Lymphatic: no easy bruising reports history of external hemorrhoids with intermittent bright red blood per rectum, though not recently Physical Exam Constitutional: well developed and + morbidly obese; no acute distress Eyes: PERRL, conjunctivae normal, anicteric sclerae Respiratory: normal respiratory effort, lungs clear to auscultation Cardiovascular: Rate/Rhythm: regular rate and regular rhythm Heart Sounds: no murmur Extremities: + edema (2+ pitting bilateral LE to mid catherine) Gastrointestinal (Abdomen): Inspection/Auscultation: + abdomen distended, normal bowel sounds and + visible herniation; caput medusae absent Percussion/Palpation: abdomen soft; abdomen nontender and no guarding Skin: no rashes, warm and dry Psychiatric: A+Ox3, euthymic affect Results & Data Results & Data ([facility]) Vital Signs (Past 12 Hours) Vital Signs Temp Pulse Pulse Resp BP Pulse Ox O2 Del Method 05/22/22 02:44 36.9 C 99 H 18 156/93 H 95 Room Air 05/21/22 22:17 106 H 05/21/22 22:57 37.6 C H 101 H 18 164/92 H 95 Room Air 05/21/22 21:58 Room Air PG Care Time/CCT Total # of Minutes Spent Total Time Spent with Patient: Total time spent is greater than 50% in coordination of care (as documented) at patient's floor/unit and/or counseling patient: Coding Level of Care Code 48425 Subseq Hosp Care Lvl 3 Diagnoses Alcohol withdrawal F10.930 Complication of substance-induced condition: uncomplicated Alcohol use disorder Cirrhosis K74.60 Hemoptysis R04.2 Anemia D64.9 Thrombocytopenia D69.6 Pancytopenia D61.818 DM2 (diabetes mellitus, type 2) E11.9 Elevated troponin R77.8 Hypokalemia E87.6 Asthma J45.909 GERD (gastroesophageal reflux disease) K21.9 (1) Alcohol withdrawal Complication of substance-induced condition: uncomplicated Qualified Code(s): F10.930 - Alcohol use, unspecified with withdrawal, uncomplicated
[2022-05-22 07:10] LABS: Albumin Level 3.2 gm/dl (3.4-5.0); BUN Creatinine Ratio 7.7 (10-20); Bilirubin,Total 2.2 mg/dl (0.2-1.0); Calcium 8.5 mg/dl (8.5-10.1); Creatinine Clr Calc Pharmacy 269.3 ml/min; Est GFR (African American) 145.1 ml/min; Est GFR (Non-African American) 125.2 ml/min; Globulin 3.1 gm/dl (2.5-4.0); Potassium 3.5 mmol/L (3.5-5.1); Total Protein 6.3 gm/dl (6.0-8.3)
[2022-05-22 07:15] LABS: Hematocrit (blood only) 31.3 % (40.1-51.0); Hemoglobin 9.9 g/dl (14.0-18.0); Mean Corpuscular Hemoglobin 25.6 pg (25.0-34.0); Mean Corpuscular Hgb Conc 31.6 g/dL (32.0-36.0); Mean Corpuscular Volume 80.9 fL (80.0-100.0); Mean Platelet Volume 10.9 fL (9.4-12.4); Platelet Count 36 K/uL (130-400); RDW Coefficient of Variation 18.2 % (11.5-14.5); RDW Standard Deviation 51.9 fL (36.4-46.3); Red Blood Count 3.87 M/uL (4.63-6.08)
[2022-05-22 07:16] LABS: Basophils # (auto) 0.02 K/uL (0-0.2); Eosinophils # (auto) 0.07 K/uL (0-0.50); Eosinophils % (auto) 3.3 %; Lymphocytes # (auto) 0.78 K/uL (1.2-3.4); Lymphocytes % (auto) 37.1 %; Monocytes # (auto) 0.15 K/uL (0.24-0.82); Monocytes % (auto) 7.1 %; Neutrophils # (auto) 1.08 K/uL (1.4-6.5); Neutrophils % (auto) 51.5 %
[2022-05-22 07:27] LABS: Ferritin 10.4 ng/ml (8-388)
[2022-05-22] MEDS: FOLIC ACID 1 MG TAB PO SCH (08:06)
[2022-05-22] MEDS: POTASSIUM CHLORIDE CRTAB 20 MEQ TABCR PO SCH ×2 (08:06→22:12)
[2022-05-22] MEDS: CETIRIZINE HCL 10 MG TABLET PO SCH (08:06)
[2022-05-22] MEDS: LACTULOSE SYRUP 30 GM/45 ML UDP PO SCH ×2 (08:06→22:12)
[2022-05-22] MEDS: THIAMINE HCL 100 MG TAB PO SCH (08:06)
[2022-05-22] MEDS: PANTOprazole 40 MG TAB PO SCH (08:07)
[2022-05-22] MEDS: ONDANSETRON INJ 2 MG/ML 2 ML VIAL IV PRN ×2 (08:10→16:15)
[2022-05-22] MEDS: ACETAMINOPHEN 325 MG TAB PO PRN ×4 (08:10→22:32)
[2022-05-22] MEDS: INSULIN ASPART PER UNIT SC SCH ×4 (08:31→22:33)
[2022-05-22] MEDS: PROMETHAZINE HCL 25 MG/20 ML UDP PO PRN ×2 (11:05→22:32)
[2022-05-22 11:31] LABS: D Dimer 1840 ug/L FEU (0-500)
[2022-05-22] MEDS ORDERED: OPTIRAY 300 500mL IV ONE (12:39)
--- NOTE | 2022-05-22 13:10 | CT Scan Report ---
CT OF THE ABDOMEN AND PELVIS WITH CONTRAST CLINICAL HISTORY: liver cirrhosis, nausea COMPARISON STUDY: None. TECHNIQUE: Following IV administration of 110 mL of Optiray, axial images of the abdomen and pelvis w ere obtained from the lung bases to the proximal femurs. Images were reviewed in the axial, sagittal, and coronal planes. IV contrast was administered without complication. Automated exposure control w as utilized for the study. A dose lowering technique was utilized adhering to the principles of ADELA Buckley. CT DOSE: 3473.22 mGy.cm FINDINGS: Please note that the chest CT will be reported separately. No pneumatosis, free air or port al venous gas is present. There is no biliary ductal dilatation status post cholecystectomy. There is severe hepatic steatosis. There is suspected cirrhosis. No hepatic lesions are identified on this ve nous phase study. Note is made of a large recanalized periumbilical vein. In addition, there are nume sean additional abdominal and pelvic collaterals, predominantly retroperitoneal in location. Moderate splenomegaly is noted. There is no ascites. Note is made of a left abdominal ventral hernia which co ntains a portion of the transverse colon. This does not result in a bowel obstruction. Colonic divert iculosis without evidence for acute diverticulitis. A few small left renal calculi measure up to 2 mm . There are no ureteral calculi. There is no hydronephrosis. Adrenal glands and pancreas are unremark able. The main, left and right portal veins are patent. Major vasculature of the abdomen and pelvis i s patent. No evidence for acute appendicitis. There is no acute fracture within the lumbar spine, pel vis or hips. There is possible avascular necrosis of the bilateral femoral heads without collapse. IMPRESSION: 1. Severe hepatic steatosis with cirrhosis. Manifestations of portal hypertension including varices f ormation and moderate splenomegaly. No ascites. 2. Left abdominal ventral hernia which contains a portion of the transverse colon. No resultant bowel obstruction. 3. Colonic diverticulosis. No evidence for acute diverticulitis. 4. A few small left renal calculi. No ureteral calculi. 5. Possible avascular necrosis of the bilateral femoral heads. ACT 112: Negative or not required by law. Electronically signed by: Carloz Graves M.D. 05/22/2022 1:09 PM
--- NOTE | 2022-05-22 13:36 | CT Scan Report ---
CHEST CT WITH CONTRAST CT DOSE: HISTORY: hemoptysis TECHNIQUE: Multiaxial CT images of the chest were performed following the intravenous administration of contrast. A dose lowering technique was utilized adhering to the principles of ALARA. COMPARISON: None. FINDINGS: The central airways are patent. No pneumothorax. No pleural effusions. There is a punctate calcified granuloma within the base of the right middle lobe. No focal lung consolidations to suggest pneumonia. No evidence for pulmonary edema. No suspicious lytic or blastic osseous lesions. Please r efer to the same day abdomen and pelvis CT for further evaluation of the abdominal structures includi ng the hepatic steatosis, cirrhosis, splenomegaly, and upper abdominal varices. There is a small hiat us hernia. Otherwise, normal caliber esophagus. The thyroid gland enhances normally. No pericardial e ffusion. The heart is borderline enlarged. No mediastinal or hilar lymphadenopathy. Normal caliber th oracic aorta with no evidence for dissection. The central pulmonary arteries appear patent. IMPRESSION: 1. No focal lung consolidations to suggest a pneumonia. 2. Small hiatus hernia. 3. Please refer to the same day abdomen and pelvis CT for further evaluation of the abdominal structu res. 4. Borderline cardiomegaly. No evidence for pulmonary edema. ACT 112: Negative or not required by law. Electronically signed by: Best Ziegler M.D. 05/22/2022 1:34 PM
[2022-05-22] MEDS: LORazepam 1 MG TAB PO PRN ×2 (16:16→22:32)
[2022-05-23] MEDS: POTASSIUM CHLORIDE CRTAB 20 MEQ TABCR PO SCH ×2 (07:26→21:48)
[2022-05-23] MEDS: PANTOprazole 40 MG TAB PO SCH (07:26)
[2022-05-23] MEDS: THIAMINE HCL 100 MG TAB PO SCH (07:26)
[2022-05-23] MEDS: LACTULOSE SYRUP 30 GM/45 ML UDP PO SCH ×2 (07:27→21:48)
[2022-05-23] MEDS: FOLIC ACID 1 MG TAB PO SCH (07:27)
[2022-05-23] MEDS: CETIRIZINE HCL 10 MG TABLET PO SCH (07:27)
[2022-05-23] MEDS: PROMETHAZINE HCL 25 MG/20 ML UDP PO PRN (07:27)
[2022-05-23] MEDS: INSULIN ASPART PER UNIT SC SCH ×4 (08:07→21:49)
--- NOTE | 2022-05-23 08:30 | Hospitalist Progress Note ---
Date of Service May 23, 2022 Assessment & Plan (1) Pancytopenia: Plan: 36 yo male PMHx alcohol use disorder, cirrhosis, mild intermittent asthma, GERD presented for alcohol withdrawal and intention to quit drinking. During admission has been noted to have elevated BSG and has developed pancytopenia without neutropenia. - On admission with Hgb 11.1 without baseline to compare; normocytic MCV. - Plts stable today, 36 -> 44. - DVT chemoppx contraindicated given low plts. - Hgb today 10.3, also stable. - B12 and folate levels normal. Venofer ordered for low iron levels. - GI provider contacted to determine platelet baseline. Suspect this drop is bone marrow suppression due to alcohol use and cirrhosis, and we may have hit the perri yesterday. - Hematology consulted given continued worsening of plt count with markers nonspecific for cirrhosis vs. DIC. Patient does not clinically appear to be in DIC. - Daily CBC while admitted. Transfuse of Hgb <7. (2) Alcohol withdrawal: Plan: - Presented with mild tremors, last drink 05/19 per patient however with admission alcohol level of 437. - Continue [facility] active protocol. Last Ativan dose 05/22 @ 2200. - Daily thiamine and folate supplementation. - Zofran, Phenergan prn. - Patient has intention to quit drinking. Reports no alcohol left in house. - Will discharge with outpatient alcohol rehab resources. (3) Cirrhosis: Plan: - Patient with history of cirrhosis on chart (likely related to alcohol use) with self-reported history of fatty liver disease. - INR, reticulocyte count, and LDH elevated, elevated LFTs, low plts suggesting hematologic sequelae of cirrhosis. - Continue home lactulose. - CT Abdomen shows severe hepatic steatosis with cirrhosis, varices formation and moderate splenomegaly. No evidence of ascites. - Daily CMP, CBC, coags. LFTs stable, INR today 1.5 from 1.4 yesterday. - Follow up GI outpatient. (4) Alcohol use disorder: Plan: - History of alcohol use for over a decade. - Reports typical use as about 20 white claws daily. - Has had some success with inpatient/outpatient rehab in the past. - Discussion had with patient about concerned regarding current and possible future negative health consequences of continued alcohol use. Have provided outpatient resources to patient by request. (5) Hemoptysis: Plan: - Complaint by patient on 05/22 in the setting of thrombocytopenia and anemia. Reports history of scant blood when coughing at times for a few months. - [place] due to thrombocytopenia. - CT Chest without evidence of pneumonia, malignancy. (6) DM2 (diabetes mellitus, type 2): Plan: - New diagnosis in-hospital. - Presented with BSG high 100s during admission. - A1c this admission 6.6% consistent with new diagnosis of DM2. - DM2 diet. qACHS insulin with titration/addition of basal insulin based on insulin need. - Diabetes education ongoing while admitted. - Transition to metformin on discharge with PCP follow up. (7) Elevated troponin: Plan: - ER initial labwork with troponin 130s, repeat similar thought downtrending to 110s. - EKG NSR without ST/T wave changes or LBBB. - No complaints of chest pain. - Echo without wall motion abnormalities or cardiomyopathy. - Suspect demand ischemia due to tachycardia in setting of alcohol withdrawal. - Continue Tele. (8) Hypokalemia: Plan: - Admission K of 2.6; increased to 3.6 with oral and IV supplementation. - Continue KCl 40mg PO BID and adjust as necessary based on daily BMP. (9) Anemia: Plan: see above (10) Thrombocytopenia: Plan: see above (11) Asthma: Plan: - Albuterol inh prn. (12) GERD (gastroesophageal reflux disease): Plan: - Continue PPI. Plan Code Status: Full Code DVT ppx: chemoprophylaxis contraindicated in plts <50, will hold. FEN/GI: DM2 Dispo: Med/Tele Admission and Anticipated Discharge Date Admission Date: May 20, 2022 Subjective No acute events overnight. No Ativan overnight. Review of Systems Constitutional: no fever, no chills and no malaise Respiratory: no cough and no dyspnea Cardiovascular: + edema (chronic LE bilateral); no chest pain and no palpitations Gastrointestinal: no abdominal pain, no constipation and no diarrhea/loose stools Hematologic / Lymphatic: no easy bruising Physical Exam Constitutional: well developed and + morbidly obese; no acute distress Eyes: PERRL, conjunctivae normal, anicteric sclerae Respiratory: normal respiratory effort, lungs clear to auscultation Cardiovascular: Rate/Rhythm: regular rate and regular rhythm Heart Sounds: no murmur Extremities: + edema (2+ pitting bilateral LE to mid catherine) Gastrointestinal (Abdomen): normal bowel sounds, soft, nontender, no hepatosplenomegaly Inspection/Auscultation: + abdomen distended, normal bowel sounds and + visible herniation; caput medusae absent Percussion/Palpation: abdomen soft; abdomen nontender and no guarding Skin: no rashes, warm and dry Psychiatric: A+Ox3, euthymic affect Results & Data Results & Data ([facility]) Vital Signs (Past 12 Hours) Vital Signs Temp Pulse Pulse Resp BP Pulse Ox O2 Del Method 05/23/22 08:23 36.4 C L 96 H 20 135/94 96 Room Air 05/23/22 06:53 89 05/23/22 04:45 88 L Room Air 05/23/22 05:00 36.4 C L 83 16 165/77 H 96 Nasal Cannula 05/23/22 04:00 37 C 92 H 20 137/87 95 Room Air 05/22/22 23:54 87 05/22/22 22:00 36.9 C 92 H 20 151/98 H 96 Room Air 05/22/22 22:02 Room Air PG Care Time/CCT Total # of Minutes Spent Total Time Spent with Patient: Total time spent is greater than 50% in coordination of care (as documented) at patient's floor/unit and/or counseling patient: Coding Level of Care Code 61272 Subseq Hosp Care Lvl 3 Diagnoses Pancytopenia D61.818 Alcohol withdrawal F10.930 Complication of substance-induced condition: uncomplicated Cirrhosis K74.60 Alcohol use disorder Hemoptysis R04.2 DM2 (diabetes mellitus, type 2) E11.9 Elevated troponin R77.8 Hypokalemia E87.6 Anemia D64.9 Thrombocytopenia D69.6 Asthma J45.909 GERD (gastroesophageal reflux disease) K21.9 (1) Alcohol withdrawal Complication of substance-induced condition: uncomplicated Qualified Code(s): F10.930 - Alcohol use, unspecified with withdrawal, uncomplicated
[2022-05-23] MEDS ORDERED: IRON SUCROSE 400 MG in SODIUM CHLORIDE 0.9% 250 ML IV ONE (09:00)
[2022-05-23 10:22] LABS: INR 1.5 (0.9-1.1); Prothrombin Time 15.3 Seconds (9.0-12.0)
[2022-05-23 10:52] LABS: Hematocrit (blood only) 32.8 % (40.1-51.0); Hemoglobin 10.3 g/dl (14.0-18.0); Mean Corpuscular Hemoglobin 25.6 pg (25.0-34.0); Mean Corpuscular Hgb Conc 31.4 g/dL (32.0-36.0); Mean Corpuscular Volume 81.6 fL (80.0-100.0); Mean Platelet Volume 11.8 fL (9.4-12.4); Platelet Count 44 K/uL (130-400); RDW Coefficient of Variation 18.4 % (11.5-14.5); RDW Standard Deviation 52.8 fL (36.4-46.3); Red Blood Count 4.02 M/uL (4.63-6.08); White Blood Count 2.06 K/ul (4.8-10.8)
[2022-05-23 10:53] LABS: ALC (manual) 0.68 K/uL (1.2-3.4); ANC (manual) 1.19 K/uL (1.4-6.5); Albumin Level 3.3 gm/dl (3.4-5.0); BUN Creatinine Ratio 7.4 (10-20); Bilirubin,Total 2.4 mg/dl (0.2-1.0); Calcium 8.8 mg/dl (8.5-10.1); Creatinine Clr Calc Pharmacy 252.9 ml/min; Eosinophils # (manual) 0.12 K/uL (0-0.50); Eosinophils % (manual) 6 %; Est GFR (African American) 142.4 ml/min; Est GFR (Non-African American) 122.9 ml/min; Globulin 3.3 gm/dl (2.5-4.0); Lymphocytes # (manual) 0.68 K/uL (1.2-3.4); Lymphocytes % (manual) 33 %; Monocytes # (manual) 0.06 K/uL (0.24-0.82); Monocytes % (manual) 3 %; Neutrophils # (manual) 1.19 K/uL (1.4-6.5); Neutrophils % (manual) 58 %; Potassium 3.6 mmol/L (3.5-5.1); Total Protein 6.6 gm/dl (6.0-8.3)
[2022-05-23] MEDS: ONDANSETRON INJ 2 MG/ML 2 ML VIAL IV PRN (17:54)
[2022-05-23 18:07] LABS: 7-Aminoclonaz, Confirm NEGATIVE ng/mL (<25); Hydro-Alp Ur, GC/MS NEGATIVE ng/mL (<25); Hydroxyethylflurazepam, Conf NEGATIVE ng/mL (<50); Hydroxymidazolam Ur, GC/MS NEGATIVE ng/mL (<50); Hydroxytriazolam NEGATIVE ng/mL (<50); Lorazepam, Ur GC/MS 1590 ng/mL (<50); Nordiazepam, Confirm NEGATIVE ng/mL (<50); Oxazepam Ur, GC/MS NEGATIVE ng/mL (<50); Temazepam, Confirm NEGATIVE ng/mL (<50)
--- NOTE | 2022-05-23 19:31 | Consultation Report ---
DATE OF SERVICE: 05/23/2022. REASON FOR CONSULTATION: Pancytopenia. HISTORY OF PRESENT ILLNESS: A 36-year-old gentleman with history of significant alcohol abuse, liver cirrhosis with resultant splenomegaly, who was admitted to [facility] on 05/20/2022 for alcohol withdrawal/use disorder. Since the patient's arrival in the hospital, he was noted to be pancytopenic with white count initially at 6.33, but has declined to 2.06. Hemoglobin was also noted to be 11.1 on admission and declined to 10.3, platelet count was noted to be 81 on admission and has declined to 44. He had workup including vitamin B12 and folate levels, which were normal. INR was elevated at 1.5. Imaging studies including CT A/P on 05/22/2022 revealed severe hepatic steatosis with cirrhosis and manifestation of portal hypertension including varices formation and moderate splenomegaly. CT chest was unremarkable. Since admission, the patient has received daily thiamine, folate supplementation, fluids. He states that he has had longstanding pancytopenia attributed to liver cirrhosis and splenomegaly. Denies fever, chills, night sweats, weight loss, palpable lymphadenopathy. ALLERGIES: No known drug allergies. HOME MEDICATIONS: 1. Melatonin. 2. Lorazepam. 3. Esomeprazole. 4. Cetirizine. 5. Albuterol as needed. PAST MEDICAL HISTORY: 1. Alcohol abuse. 2. Diverticulitis. 3. GERD. 4. Asthma. PAST SURGICAL HISTORY: Cholecystectomy. FAMILY HISTORY: Noncontributory. SOCIAL HISTORY: Positive for alcohol abuse. Denies smoking or illicit drug use. REVIEW OF SYSTEMS: Unremarkable. PHYSICAL EXAMINATION: Unremarkable. LABORATORY DATA: As mentioned above. IMAGING STUDIES: As mentioned in HPI. ASSESSMENT AND PLAN: 1. Pancytopenia. 2. Severe hepatic steatosis with liver cirrhosis and resultant splenomegaly. A pleasant 36-year-old gentleman with history of alcohol abuse with resultant severe hepatic steatosis, liver cirrhosis and splenomegaly. On admission, patient was noted to have normal white cell count, which has declined. Suspect that his white cell count was falsely elevated on admission due to dehydration from excessive alcohol use. He most likely has baseline pancytopenia due to sequestration from moderate splenomegaly. Patient also indicated that he has been told on multiple occasions in several hospitals including [facility] and [facility] that he has low blood counts. Anemia labs revealed ferritin of 10 indicating iron deficiency, for which I will recommend giving IV Venofer 300 mg x2 doses while hospitalized. Peripheral smear review was unremarkable and not suggestive of underlying hematologic malignancy. No indication at this time to suspect hematologic malignancy and as such would not recommend a bone marrow biopsy. Thank you for this consult. Hematology will sign off at this time. Please feel free to call if you have any questions Job ID: [id number] [facility]
[2022-05-23] MEDS: MELATONIN 3 MG TAB PO PRN (21:46)
[2022-05-23] MEDS: ACETAMINOPHEN 325 MG TAB PO PRN (21:46)
[2022-05-24] MEDS: PANTOprazole 40 MG TAB PO SCH (07:59)
[2022-05-24] MEDS: THIAMINE HCL 100 MG TAB PO SCH (08:00)
[2022-05-24] MEDS: FOLIC ACID 1 MG TAB PO SCH (08:00)
[2022-05-24] MEDS: POTASSIUM CHLORIDE CRTAB 20 MEQ TABCR PO SCH (08:01)
[2022-05-24] MEDS: LACTULOSE SYRUP 30 GM/45 ML UDP PO SCH (08:01)
[2022-05-24] MEDS: CETIRIZINE HCL 10 MG TABLET PO SCH (08:01)
[2022-05-24] MEDS: ACETAMINOPHEN 325 MG TAB PO PRN (08:02)
[2022-05-24] MEDS: INSULIN ASPART PER UNIT SC SCH ×2 (08:08→12:30)
[2022-05-24 09:48] LABS: Basophils # (auto) 0.03 K/uL (0-0.2); Basophils % (auto) 0.9 %; Eosinophils # (auto) 0.09 K/uL (0-0.50); Eosinophils % (auto) 2.8 %; Hematocrit (blood only) 35.3 % (40.1-51.0); Hemoglobin 10.9 g/dl (14.0-18.0); Immature Granulocytes # (auto) 0.02 K/uL (0.00-0.02); Immature Granulocytes % (auto) 0.6 %; Lymphocytes # (auto) 0.91 K/uL (1.2-3.4); Lymphocytes % (auto) 28.1 %; Monocytes # (auto) 0.26 K/uL (0.24-0.82); Neutrophils # (auto) 1.93 K/uL (1.4-6.5); Neutrophils % (auto) 59.6 %; Platelet Count 62 K/uL (130-400); White Blood Count 3.24 K/ul (4.8-10.8)
[2022-05-24 09:59] LABS: INR 1.4 (0.9-1.1); Prothrombin Time 14.8 Seconds (9.0-12.0)
[2022-05-24 10:18] LABS: Mean Corpuscular Hemoglobin 25.5 pg (25.0-34.0); Mean Corpuscular Hgb Conc 30.9 g/dL (32.0-36.0); Mean Corpuscular Volume 82.5 fL (80.0-100.0); RDW Coefficient of Variation 19.1 % (11.5-14.5); RDW Standard Deviation 55.1 fL (36.4-46.3); Red Blood Count 4.28 M/uL (4.63-6.08)
[2022-05-24 10:22] LABS: Albumin Level 3.4 gm/dl (3.4-5.0); BUN Creatinine Ratio 7.4 (10-20); Bilirubin,Total 2.3 mg/dl (0.2-1.0); Creatinine Clr Calc Pharmacy 253.5 ml/min; Est GFR (African American) 142.4 ml/min; Est GFR (Non-African American) 122.9 ml/min; Globulin 3.4 gm/dl (2.5-4.0); Potassium 3.6 mmol/L (3.5-5.1); Total Protein 6.8 gm/dl (6.0-8.3)
--- NOTE | 2022-05-24 10:29 | Discharge Summary ---
Discharge Summary Date of Service May 24, 2022 Admission HPI Per Admitting Provider 36 yo male PMHx alcohol use disorder, cirrhosis, asthma, restless leg syndrome, GERD presents to clinic for alcohol withdrawal. He drank 24 white claws a day for the last week and then had a shot of fireball last night. Denies alcohol use today. Starting to feel generalized tremors, difficulty sleeping, and chills. Denies fevers, SOB, chest pain, hallucinations. Long standing history of alcohol use disorder, states he was in the [facility] program ~2 months ago which was going well until it fell apart. He is interested in quitting alcohol once again. Denies any heart abnormalities. Was given banana bag and spot doses of Ativan in the ED. Admission Exam Per Admitting Provider Constitutional: in no acute distress, pleasant, intact memory. Vitals as above. Morbidly obese. HEENT: No scleral injection or discharge. Moist mucous membranes. Clear oropharynx without exudate. Neck: Supple without lymphadenopathy or thyromegaly. Trachea midline. Lungs: Clear to auscultation bilaterally with good effort. Cardiac: Regular rate and rhythm. No murmurs.2+ bilateral pitting edema. 2+ peripheral pulses. Abdomen: Bowel sounds present. Soft, nontender. +large hiatal hernia.No guarding or rebound tenderness. No hepatosplenomegaly. MSK: No cyanosis or clubbing. Extremities motor strength 5/5. Skin: warm, dry. Neurologic: No focal deficits. PERRL. +generalized tremors. No clonus. Principal Dx & Hospital Course #1 = Principal Diagnosis (1) Pancytopenia: 36 yo male PMHx alcohol use disorder, cirrhosis, mild intermittent asthma, GERD presented for alcohol withdrawal and intention to quit drinking. During admission has been noted to have elevated BSG and has developed pancytopenia without neutropenia. - On admission with Hgb 11.1 without baseline to compare; normocytic MCV. - Plts decreased to 30s, with plts increasing up to 60s on discharge. - Hgb ~10, stable. - B12 and folate levels normal. Venofer given during admission for low iron levels. - GI outpatient provider contacted to determine platelet baseline; has known thrombocytopenia so his low platelets are not new. - Hematology consulted given continued worsening of plt count with markers nonspecific for cirrhosis vs. DIC. Patient does not clinically appear to be in DIC. Hematology to follow up outpatient in 2-3 months. (2) Alcohol withdrawal: - Presented with mild tremors, last drink 05/19 per patient however with admission alcohol level of 437. - Last Ativan dose 05/22 @ 2200. - Daily thiamine and folate supplementation provided. - Zofran, Phenergan prn. - Long discussion had with patient about concerns regarding alcohol use and its effect on his emotional and physical health. Was upfront with him about the existing damage to his liver, as well as future damage should he continue to drink. - Patient has intention to quit drinking. Reports no alcohol left in house. - Will discharge with outpatient alcohol rehab resources. (3) Cirrhosis: - Patient with history of cirrhosis on chart (likely related to alcohol use) with self-reported history of fatty liver disease. - INR, reticulocyte count, and LDH elevated, elevated LFTs, low plts suggesting hematologic sequelae of cirrhosis. - Continue home lactulose. - CT Abdomen shows severe hepatic steatosis with cirrhosis, varices formation and moderate splenomegaly. No evidence of ascites. - Follow up GI outpatient. (4) Alcohol use disorder: - History of alcohol use for over a decade. - Reports typical use as about 20 white claws daily. - Has had some success with inpatient/outpatient rehab in the past. - Discussion had with patient about concerned regarding current and possible future negative health consequences of continued alcohol use. Have provided outpatient resources to patient by request. (5) DM2 (diabetes mellitus, type 2): - New diagnosis in-hospital. - Presented with BSG high 100s during admission. - A1c this admission 6.6% consistent with new diagnosis of DM2. - DM2 diet. hematology nurse educator consulted during admission. - Due to liver disease, will avoid metformin, GLP-1. Could consider SGLT-2; will leave up to discretion of PCP. - Discussed dietary and alcohol modification for BSG control. (6) Elevated troponin: - ER initial labwork with troponin 130s, repeat similar thought downtrending to 110s. - EKG NSR without ST/T wave changes or LBBB. - No complaints of chest pain. - Echo without wall motion abnormalities or cardiomyopathy. - Suspect demand ischemia due to tachycardia in setting of alcohol withdrawal. - Continue Tele. (7) Hemoptysis: - Complaint by patient on 05/22 in the setting of thrombocytopenia and anemia. Reports history of scant blood when coughing at times for a few months. - Likely due to thrombocytopenia. - CT Chest without evidence of pneumonia, malignancy. (8) Hypokalemia: - Admission K of 2.6; increased to 3.6 with oral and IV supplementation. - Normal K on day of discharge. (9) Anemia: see above (10) Thrombocytopenia: see above (11) Asthma: - Albuterol inh prn. (12) GERD (gastroesophageal reflux disease): - Continue PPI. Plan Dispo: home with self care Discharge Exam Constitutional well developed and + morbidly obese; no acute distress Respiratory normal respiratory effort, lungs clear to auscultation Cardiovascular RRR, no murmur, 2 bilateral LE pitting edema (venous stasis) Updated Medication List Medication Instructions Recorded Confirmed Type albuterol sulfate 90 mcg/actuation 1 inh inhalation UD PRN asthma 09/20/21 05/20/22 History aerosol inhaler cetirizine 10 mg tablet (Zyrtec) 10 mg PO DAILY 09/20/21 05/20/22 History esomeprazole magnesium 40 mg 40 mg PO QAM 09/20/21 05/20/22 History capsule,delayed release (Nexium) lactulose 10 gram/15 mL oral 30 ml PO BID 09/20/21 05/20/22 History solution lorazepam 1 mg tablet 1 mg PO UD PRN Sleep 09/20/21 05/20/22 History melatonin 10 mg capsule 10 mg PO HS PRN Sleep 09/20/21 05/20/22 History Hospital Stay Data Consultations 05/20/22 18:00 ED Decision to Admit Stat 05/22/22 11:55 Consult Hematology Routine Diagnostic Imagining Performed 05/22/22 10:32 CT abd pelvis IV con only Routine 05/22/22 11:42 CT chest diagnostic w con Routine Pending Results Patient Have Any Pending Studies at Discharge: No Discharge Instructions Given to Patient (Per Discharging Provider) You were admitted to the hospital to help with your alcohol withdrawal. You were given Ativan and nausea medication to help you through your withdrawal. While you were admitted you were found to have diabetes. You were started on insulin while you were here, which brought your sugars down. It is important in diabetes to decrease your carbohydrate intake is much as possible. This includes beer/alcohol, rice, potatoes, pasta, bread, cakes, full sugar candies, and full sugar beverages such as soda/juice/tea. Your A1c tells us that if you were to change your diet, and stop drinking alcohol, you would perhaps not need medication for your diabetes. No changes were made to your home medicines. Please see the information above for contact information of Dr. Traore (Hematology, ), Dr. Zavaleta (Gastroenterology, ), and Dr. Bhatt (your family doc, ). During this visit you are also found to have low blood cell counts, which is due to your liver cirrhosis. This means that you have low amounts of cells that deliver oxygen through the body, low amounts of infection fighter cells, and low amounts of clotting cells. This puts you at increased risk for infection and bleeding. We discussed that drinking alcohol is doing damage to your liver, and that if you do not quit drinking alcohol that these problems will continue to get worse and you will ultimately as a result of alcohol use. It is extremely important that you connect with outpatient alcohol rehab services, psychiatric services, and counseling services in order to maintain sobriety. If you are interested in joining [facility] locally, their phone number for [facility] is and they are located on [facility]. Total Time Total Time Spent Total Time Spent (In Minutes): 40 Coding Level of Care Code D/C DAY MANAGEMENT >30 MINS Diagnoses Pancytopenia D61.818 Alcohol withdrawal F10.930 Complication of substance-induced condition: uncomplicated Cirrhosis K74.60 Alcohol use disorder DM2 (diabetes mellitus, type 2) E11.9 Elevated troponin R77.8 Hemoptysis R04.2 Hypokalemia E87.6 Anemia D64.9 Thrombocytopenia D69.6 Asthma J45.909 GERD (gastroesophageal reflux disease) K21.9
[2022-05-24] MEDS: PROMETHAZINE HCL 25 MG/20 ML UDP PO PRN (12:30)
== END 2022-05-24 13:57 | disposition home or self-care (01) | DRG 897 ==
LOC: ED 14:28 → 2W 19:03